=== PATIENT | female | born 1970 | race Caucasian/White ===

== ENCOUNTER 2018-08-27 10:13 | Observation (INO) ==
[2018-08-27] MEDS: NS + KCL 20 MEQ 1,000 ML IV SCH ×2 (10:00→18:09)
[~2018-08-27 10:13] MED LIST: NS 1,000 ML IV ONE; PHENERGAN IV PRN; SODIUM CHLORIDE 0.9% INJ PRN
[2018-08-27 11:29] LABS: EOS# 0.01 X1000 (0.0-0.7); EOS% 0.2 % (0.0-10.0); HEMATOCRIT 45.6 % (37.0-47.0); HEMOGLOBIN 15.1 g/dL (12.0-16.0); LYMPH% 10.2 % (20.5-51.1); MCH 29.8 PG (27-31); MCHC 33.1 g/dL (33-37); MCV 89.9 FL (81-99); MONO# 0.37 X1000 (0.11-0.59); MONO% 7.5 % (1.7-9.3); NEUT# 4.04 X1000 (1.4-6.5); NEUT% 82.1 % (42.2-75.2); PLT 234 X1000 (130-400); RBC 5.07 XMIL (4.2-5.4); RDW 13.5 % (11.5-14.5); WBC 4.92 X1000 (4.8-10.8)
[2018-08-27] MEDS: TYLENOL PO PRN ×2 (11:40→18:22)
[2018-08-27 11:50] LABS: AGAP 15; ALB/GLOB RATIO 1.4; ALBUMIN 4.2 g/dL (3.5-5.0); ALKALINE PHOSPHATASE 110 U/L (32-104); BUN 17 mg/dL (8-22); CALCIUM 9.4 mg/dL (8.8-10.2); CHLORIDE 102 mmol/L (98-107); COSMO 285; CREATININE 0.8 mg/dL (0.5-0.9); ESTIMATED GFR > 60; GLUCOSE 108 mg/dL (70-104); GOT 18 U/L (10-30); GPT 37 U/L (10-36); POTASSIUM 4.2 mmol/L (3.5-5.1); SODIUM 142 mmol/L (136-145); TCO2 25 mmol/L (25-35); TOTAL BILIRUBIN 0.41 mg/dL (0.20-1.00); TOTAL PROTEIN 7.3 g/dL (6.3-8.3)
[2018-08-27 12:25] LABS: SED RATE 18 mm/hr (0-20)
[2018-08-27 18:13] LABS: URINE SOURCE CLEAN CATCH
[2018-08-27 18:20] LABS: BILIRUBIN URINE NEGATIVE (NEGATIVE); BLOOD URINE NEGATIVE (NEGATIVE); COLOR YELLOW; GLUCOSE URINE NEGATIVE (NEGATIVE); KETONE URINE 20 mg/dL (NEGATIVE); LEUKOCYTES URINE SMALL (NEGATIVE); NITRITE URINE NEGATIVE (NEGATIVE); PH URINE 6.5; PROTEIN URINE 30 mg/dL (NEGATIVE); SP GRAVITY URINE 1.035; TURBIDITY URINE CLEAR (CLEAR); UR EPITHELIAL CELLS <10 /HPF (<10); URINE BACTERIA NEGATIVE /HPF; URINE RBC <10 /HPF (<10); URINE WBC <10 /HPF (<10); UROBILINOGEN URINE NORMAL (NORMAL)
[2018-08-27] MEDS ORDERED: AMBIEN PO SCH (21:00)
[2018-08-27] MEDS ORDERED: LEXAPRO PO SCH (21:00)
[2018-08-27] MEDS ORDERED: ZYRTEC PO SCH (21:00)
--- NOTE | 2018-08-28 00:15 | HISTORY AND PHYSICAL ---
CHIEF COMPLAINT: Nausea, vomiting, diarrhea, and body aches. HISTORY OF PRESENT ILLNESS: The patient is a 47-year-old white female followed in my practice, comes in with about a 4 to 5 day history of illness. She has had some diffuse abdominal pain and some nausea, initially began after a meal, but no one else got sick with the meal. She has had development of several episodes of diarrhea and has about 15 episodes of emesis in the past 24 hours prior to admission. She has been achy all over. She was seen in the ER last evening, where she was diagnosed with enterocolitis. Patient has undergone EGD in September 2016 which was normal. Patient also underwent colonoscopy in January 2015 revealing 1 single removed polyp which was benign. She has a history of some chronic constipation. LABS: Yesterday in the ER showed sedimentation rate of 26, normal white count 6.3, hemoglobin 15.1, platelets 266,000. CMP was unremarkable, except for alkaline phosphatase of 111, ALT of 43. Vitamin B12 was 361, folate 13.8. She had a clean-catch urine done yesterday in the ER, which appeared to be contaminated showed 2+ [*], 20 to 40 [*] per microscopic exam, calcium oxalate crystals, some casts, nitrite and bilirubin negative, trace ketones, trace protein. The patient received some Zofran, but has not responded. She has kept having prominent nausea and vomiting during the night last night and she is interested in admission. MEDICATIONS: Prior to admission are Zyrtec 5 mg p.o. at bedtime, Lexapro 5 mg p.o. at bedtime, Ambien 10 mg p.o. at bedtime. ALLERGIES: To Toradol, Reglan, and droperidol. PAST MEDICAL HISTORY: 1. History of breast cancer on the right. 2. History of folic acid deficiency, April 2015. 3. 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 4. Left rotator cuff tear, followed by Dr. Pinto. 5. History of some chronic neck difficulties. PAST SURGICAL HISTORY: 1. Bunionectomy. 2. Bladder sling March 2009. 3. Right breast lumpectomy. 4. YOVANY-BSO November 2017. 5. Cervical fusion. FAMILY HISTORY: Notable for mother and 2 aunts with osteoporosis, stroke in her both grandfathers, CT in her father and mother in her 50s, hypertension in her father and mother, diabetes in father and mother. No cancer in the family. Father had left carotid stenosis. SOCIAL HISTORY: The patient lives in [place]. She is , has 2 children. Has never been a smoker. Drinks occasional alcohol. 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 REVIEW OF SYSTEMS: Negative except as above. PHYSICAL EXAMINATION: VITAL SIGNS: Weight 166, height 5 feet 3 inches, blood pressure 110/73, pulse 111, BMI 28. GENERAL: Mildly obese white female, ill-appearing. SKIN: Warm and dry. Somewhat pale. HEENT: PERRL. EOMI. Sclerae anicteric. TMs clear. OP: No major redness. NECK: Mild diffuse tenderness. No cervical lymphadenopathy. No TMG, JVD, or bruits. CARDIOVASCULAR: Tachycardia, regular rhythm. No murmur, gallop, or rub. LUNGS: CTA. BACK: No CVA tenderness. ABDOMEN: Soft, protuberant. Mild diffuse tenderness. No mass, organomegaly. No rebound or guarding. BREASTS/PELVIC/RECTAL: Deferred. EXTREMITIES: No calf tenderness, cords, or edema. NEUROLOGIC: Cranial nerves 2-12 are intact. Nonfocal. LAB DATA: Reviewed from yesterday, and also from labs done through my office and through the ER on 08/26/2018. ASSESSMENT: 1. Intractable vomiting with pronounced nausea and diarrhea, rule out gastroenteritis or enterocolitis. 2. Myalgias. 3. History of folic acid deficiency. 4. History of breast cancer on the right. 5. History of some chronic neck pain. 6. Mild depression and anxiety. PLAN: Will admit the patient. Continue present medications as she is on at home. Give IV fluids. Check stool studies. She was thought to have a UTI in the emergency room, that was a clean-catch specimen, so I am going to check a cathed UA and do a culture on that. We will give her Phenergan as needed for nausea and vomiting, IV fluids, Tylenol, clear liquid diet. cc: Reid Munoz MD
[2018-08-28] MEDS: NS + KCL 20 MEQ 1,000 ML IV SCH (03:36)
[2018-08-28] MEDS: TYLENOL PO PRN (03:48)
[2018-08-28 11:45] VITALS: BP 121/44
--- NOTE | 2018-08-28 13:19 | PROGRESS NOTE ---
DATE: 08/28/2018 SUBJECTIVE: Patient says her stomach is settling now. She has had no nausea, no vomiting, no diarrhea. They were unable to obtain stool studies as she has had no bowel movement. She denies dysuria or gross hematuria, and abdominal pain has resolved. She says she can't believe how bad her belly pain was, and she is thankful for the work up she has had. Reviewed CT abdomen and pelvis revealing fatty liver and some enterocolitis. This was done per the ER physician. Also, patient had abdominal ultrasound revealing fatty liver. Otherwise negative. ASSESSMENT: 1. Acute gastroenteritis resolving. 2. Myalgias thought related to #1. 3. History of folic acid deficiency. 4. History of right breast cancer. 5. Chronic neck pain. 6. Mild depression and anxiety. 7. AR. 8. Fatty liver. PLAN: Urine cultures x2 have been negative with no growth at this point. We will not give her any antibiotics for that. Advised heavy fluid intake. Give her Phenergan as needed. I transmitted to her pharmacy in [facility]. Otherwise, continue home medications. Follow up with me in my office if needed. Encouraged her in weight reduction to help with her fatty liver, cc: Reid Munoz MD
== END 2018-08-28 14:59 | disposition home or self-care (01) ==
LOC: DIRADM → 3N 16:18
PROVIDERS: ADMIT Family Medicine; ATTEND Family Medicine
CPT/HCPCS: 80053; 81001; 85025; 85651; 87088; A9270; J3480